=== PATIENT | male | born 1935 | race Caucasian/White ===

== ENCOUNTER 2016-05-08 08:24 | Day surgery (SDC) | payer MEDICARE, OTHER ==
[~2016-05-08 08:24] MED LIST: LACTATED RINGERS 1,000 ML IV.SOLN IV ONE; Lidocaine 1% 20ml (SOUTH OMNI) ONE; PROPOFOL 500 MG/50 ML VIAL IV ONE
[2016-05-08 10:52] VITALS: BP 125/88
--- NOTE | 2016-05-08 13:57 | GI Report ---
REFERRING PHYSICIAN: Dr. Farida Puckett ASSISTANT TO THE VICE PRESIDENT: Alvino Collins MD PROCEDURE MEDICATION: Propofol as per anesthesia. INDICATIONS: This is an 80-year-old man who has a lot of heartburn and indigestion. He says he does pretty well as long as he takes omeprazole. He denies food stopping on him. FINDINGS: 1. A huge hiatal hernia, about half the stomach is in the chest. 2. Distal esophagitis. PROCEDURE PERFORMED: Endoscopy. PROCEDURE: An Olympus video endoscope was passed through the esophagus under direct visualization. He does have grade 2 esophagitis at the GE junction. No obvious Jose's. The patient has a huge hiatal hernia of at least a 10 cm size. About half the stomach is in the chest. In the fundus, body, and antrum , no additional lesions. He does have some chronic gastritis. Biopsies were taken for H-Pylori. Duodenal bulb, first and second part of the duodenum looked unremarkable. The patient tolerated the procedure well. RECOMMENDATIONS: 1. I think he needs to sleep with his bed elevated at least 3 or 4 inches. 2. Do not eat late at night. 3. I would stay on a PPI before breakfast and take an antacid like Gaviscon at bedtime. 4. Follow up with Dr. Puckett cc: Dr. Farida SORTO
--- NOTE | 2016-05-08 14:10 | GI Report ---
REFERRING PHYSICIAN: Dr. Farida Puckett IT BUSINESS SYSTEMS ANALYST: Alvino Collins MD PROCEDURE MEDICATION: Propofol as per anesthesia. INDICATIONS: The patient has had previous polyps, a serrated adenoma about 3 years ago. He is bothered with constipation. He does not really eat much fiber in his diet. FINDINGS: 1. Severe diverticular disease of the sigmoid and descending colon. 2. An atonic redundant colon. PROCEDURE PERFORMED: Colonoscopy. PROCEDURE: An Olympus video colonoscope was advanced to the rectum. Patient had severe diverticular disease of the sigmoid and descending colon. A fairly atonic redundant colon but we were finally able to reach the cecum. Appendiceal orifice and ileocecal valve were normal. On slow withdrawal, the cecum and ascending colon with redundancy, no obvious intraluminal lesions noted. Transverse colon, again, redundancy and no obvious intraluminal lesions noted. The patient has extensive large diverticula in the sigmoid and descending colon. We went back and forth several times and saw no polyps or additional lesions. Retroflexion of the rectum was normal. Patient tolerated the procedure well. RECOMMENDATIONS: 1. I think he needs to be on Benefiber, Metamucil, or Citrucel daily. 2. Increase fiber in the diet, such as oatmeal or bran for breakfast. 3. I saw no polyps this time. Consider re-looking at his colon in 5 to 10 years as needed. cc: Dr. Farida SORTO
--- NOTE | 2016-05-09 08:41 | Diagnostic Imaging Report ---
[facility] [address] [facility].[address] [id number] Report Submission Date: May 08, 2016 1:23:58 PM HAND BUNCH MAKER Patient Study Name: CANDACE BROOKS Date: May 08, 2016 1:11:03 PM HAND BUNCH MAKER Modality Type: CR Gender: M Description: ABDOMEN : 33 Institution: [facility] Physician Radiology Abdomen -one view CLINICAL HISTORY: Retained air after procedure. FINDINGS: Examination abdomen in single AP view demonstrates gas in the colon and in multiple nondistended small bowel loops. Surgical clips are present from prior cholecystectomy. Degenerative changes are evident in the lumbar vertebrae and hips. There are no unusual intra-abdominal calcifications. IMPRESSION: Increased small and large bowel gas consistent with the patient's clinically described procedure. Degenerative changes in lumbar spine and hips. Postoperative abdomen. Electronically signed on May 08, 2016 1:23:58 PM HAND BUNCH MAKER by: Jose SORTO
== END 2016-05-08 13:35 | disposition home or self-care (01) ==
LOC: OPSURG 08:24
PROVIDERS: ATTEND Internal Medicine Gastroenterology
DX: K44.9 Diaphragmatic hernia without obstruction or gangrene (principal); R12 Heartburn; K20.9 Esophagitis, unspecified; K29.70 Gastritis, unspecified, without bleeding; K57.30 Diverticulosis of large intestine without perforation or abscess without bleeding; K59.8 Other specified functional intestinal disorders; Z86.010 Personal history of colon polyps
CPT/HCPCS: 43235; 45378; 74000; J2704; J7120; S1016

== ENCOUNTER 2017-05-01 09:45 | Outpatient (CLI) | payer MEDICARE, OTHER ==
[2017-05-01 10:00] LABS: BASOPHILS % 0.4 (0.0-1.5); EOSINOPHILS % 0.5 % (0.0-6.8); MEAN CORPUSCULAR HEMOGLOBIN 34.4 pg (28.0-34.0); MEAN CORPUSCULAR VOLUME 98.6 fl (80.0-100.0); MONOCYTES % 8.7 % (0.0-11.0); NEUTROPHILS # 3.7 # k/uL (1.4-7.7)
== END 2017-05-01 09:46 ==
LOC: LAB 09:45
PROVIDERS: ATTEND Family Medicine
DX: Z79.899 Other long term (current) drug therapy (principal); E03.9 Hypothyroidism, unspecified
CPT/HCPCS: 36415; 84443; 85025

== ENCOUNTER 2018-01-24 15:46 | Outpatient (CLI) | payer MEDICARE, OTHER ==
[2018-01-24 16:46] LABS: eGFR (Non-African) > 60
--- NOTE | 2018-01-24 19:54 | Diagnostic Imaging Report ---
SARTHAK ZURITA [facility] [address] [facility] [address] [place], [place]. [address] Report Submission Date: Jan 24, 2018 5:36:57 PM CDT Patient Study Name: CANDACE BROOKS Date: Jan 24, 2018 4:55:22 PM CDT Modality Type: CT\SR Gender: M Description: CT ABD PELVIS W/O CO : 34 Institution: [facility] Physician: SARTHAK ZURITA CT of the abdomen and pelvis without contrast Clinical history: Severe right lower quadrant abdominal pain. Technique: CT abdomen and pelvis is performed without oral or intravenous administration of contrast. Sagittal and coronal reconstructions were performed by the technologist. Contrast was not administered because of patient's history of prior contrast reactions. Findings: There is minimal dependent atelectasis in the lung bases. Lung bases are otherwise clear. Hiatal hernia is evident. Visualized liver and spleen are unremarkable. Gallbladder is surgically absent. There is no pancreatic or adrenal abnormality. The kidneys are of normal size, shape and position with a left intrarenal calculus. There is no evident bladder or ureteral calculus and no hydronephrosis. Bladder is normally distended. There is no free fluid in the pelvis or abdomen. Gas and stool are present in the colon. There are scattered diverticula in the descending and sigmoid colon. The appendix is not identified, but there is no evidence of appendicitis. Small inguinal hernia seen on the left contains only fat. Spondylitic changes are seen in thoracolumbar vertebrae Impression: 1. Large hiatal hernia. 2. Postoperative changes. 3. Left intrarenal calculus. 4. Diverticulosis. 5. The appendix is not identified, but there is no evidence of appendicitis. Electronically signed on Jan 24, 2018 5:36:57 PM CDT by: Jose SORTO
[2018-01-24 22:11] LABS: BASO % 0.4 % (0.0-1.5); EOS % 0.1 % (0.0-6.8); LYMPH ABS # 2.73 thou/uL (0.60-4.00); MCH. 33.1 pg (28.0-34.0); MCV 97.8 fL (80.0-100.0); MONOCYTE % 10.9 % (0.0-11.0); MONOCYTE ABS # 0.79 thou/uL (0.00-0.90); PLATELET COUNT 224 thou/uL (130-400)
== END 2018-01-24 15:47 ==
LOC: LAB 15:46
PROVIDERS: ATTEND Physician Assistant
DX: R10.31 Right lower quadrant pain (principal); R10.9 Unspecified abdominal pain
CPT/HCPCS: 36415; 74176; 80053; 85025